=== PATIENT | male | born 1945 ===

== ENCOUNTER 2019-09-04 15:15 | Inpatient (IN) | payer OTHER ==
[~2019-09-04] VITALS: Ht 182.9 cm; Wt 93.9 kg
[2019-09-08] MEDS ORDERED: TINACTIN133 GM (07:56)
[2019-09-08] MEDS ORDERED: VITAMIN A & D113 G1 (07:56)
[2019-09-08] MEDS ORDERED: GLUCERNA HUNGE340 ML (07:56)
== END 2019-09-14 15:26 | disposition home or self-care (01) | DRG 330 ==
LOC: ADM 15:15 → SURH 15:15 → EDSTATUS 15:15 → SURH 09-08 05:40 → O/R 09-08 05:40 → SURH 09-08 07:00
PROVIDERS: Urology; ADMIT Colon & Rectal Surgery
PROC: 07BC4ZX Excision of Pelvis Lymphatic, Percutaneous Endoscopic Approach, Diagnostic (ICD-10-PCS; 2019-09-08)
PROC: 0WQF4ZZ Repair Abdominal Wall, Percutaneous Endoscopic Approach (ICD-10-PCS; 2019-09-08)
PROC: 0WQF0ZZ Repair Abdominal Wall, Open Approach (ICD-10-PCS; 2019-09-08)
PROC: 0T788DZ Dilation of Bilateral Ureters with Intraluminal Device, Via Natural or Artificial Opening Endoscopic (ICD-10-PCS; 2019-09-08)
PROC: 0DBP4ZZ Excision of Rectum, Percutaneous Endoscopic Approach (ICD-10-PCS; principal; 2019-09-08 07:00)
PROC: 0DBN4ZZ Excision of Sigmoid Colon, Percutaneous Endoscopic Approach (ICD-10-PCS; 2019-09-08 07:00)
DX: C18.7 Malignant neoplasm of sigmoid colon (principal); C79.89 Secondary malignant neoplasm of other specified sites; N17.9 Acute kidney failure, unspecified; K43.2 Incisional hernia without obstruction or gangrene